=== PATIENT | female | born 1950 | race Caucasian/White ===

== ENCOUNTER 2016-11-08 09:00 | Day surgery (SDC) | payer OTHER ==
[2016-11-08] VITALS (9 sets, daily range): BP systolic 110–142; BP diastolic 68–72; PULSE 48–75; RESP 16; TEMP 97.6–98.1; O2SAT 95–98
[~2016-11-08] VITALS: Ht 165.1 cm; Wt 67.5 kg
[~2016-11-08 09:00] MED LIST: ALPR-138 PO; LEVO125T48 PO; LORTA5 PO; METO50TA PO; OMEP20CA5 PO
[2016-11-08] MEDS ORDERED: IOHEXOL 350 MG/ML 100 ML BTL (for Cath Lab) OTHER ONE (09:01)
[2016-11-08] MEDS ORDERED: NS 1000P @30 MLS/HR (KVO) IV SCH (09:30)
[2016-11-08] MEDS ORDERED: METO25TA3 PO (09:53)
[2016-11-08] MEDS ORDERED: LORA-373 PO (09:53)
[2016-11-08] MEDS ORDERED: BUPR150CR PO (09:53)
[2016-11-08] MEDS ORDERED: VITA100018 PO (09:53)
[2016-11-08] MEDS ORDERED: FLUT1INH INH (09:53)
[2016-11-08] MEDS ORDERED: FISH100020 PO (09:53)
[2016-11-08] MEDS ORDERED: LEVO88TA2 PO (09:53)
[2016-11-08] MEDS ORDERED: MONT10TA4 PO (09:53)
[2016-11-08] MEDS ORDERED: ASPI81TA11 PO (09:53)
[2016-11-08 10:29] LABS: AUTOMATED NEUTROPHIL # 3.1 TH/MM3 (1.8-7.7); BASOPHIL % 0.7 % (0.0-2.0); EOSINOPHIL # 0.1 TH/MM3 (0-0.4); EOSINOPHIL % 1.3 % (0.0-4.0); HEMATOCRIT 42.9 % (35.0-46.0); HEMO FLAGS DIFF FINAL; LYMPHOCYTE # 1.9 TH/MM3 (1.0-4.8); MEAN CELL VOLUME 92.1 FL (80.0-100.0); MEAN CORPUSCULAR HEMOGLOBIN 31.2 PG (27.0-34.0); MEAN CORPUSCULAR HGB CONC 33.9 % (32.0-36.0); MONO % 7.8 % (0.0-8.0); NEUT % 56.2 % (16.0-70.0); PLATELET COUNT 219 TH/MM3 (150-450); RED BLOOD COUNT 4.66 MIL/MM3 (4.00-5.30); RED CELL DISTRIBUTION WIDTH 13.4 % (11.6-17.2); WHITE BLOOD COUNT 5.5 TH/MM3 (4.0-11.0)
[2016-11-08 10:35] LABS: APTT (PATIENT) 24.2 SEC (24.3-30.1); PROTHROMBIN TIME - PATIENT 10.7 SEC (9.8-11.6)
[2016-11-08 10:44] LABS: BICARBONATE 30.8 MEQ/L (21.0-32.0); POTASSIUM 3.8 MEQ/L (3.5-5.1)
[2016-11-08] MEDS ORDERED: DEXTROSE 50% IN WATER 50 ML SYRINGE ONE (12:39)
[2016-11-08] MEDS ORDERED: NITROGLYCERIN INJ 5 ML ONE (12:39)
[2016-11-08] MEDS ORDERED: VERAPAMIL HCL 5 MG/2 ML VIAL ONE (12:40)
[2016-11-08] MEDS ORDERED: MIDAZOLAM HCL 2 MG/2 ML VIAL ONE (12:40)
[2016-11-08] MEDS ORDERED: HEPARIN SODIUM - IV 10,000 UNITS/10 ML VIAL ONE ×2 (12:40→14:26)
[2016-11-08] MEDS ORDERED: HEPARIN-NS/PF INJ 1,000 ML ONE ×2 (12:50→13:37)
--- NOTE | 2016-11-08 14:33 | EKG ---
Date Performed: 11/08/2016 Time Performed: 10:00:08 PTAGE: 65 years EKG: Sinus rhythm with frequent PVCs Abnormal ECG NO PREVIOUS TRACING DOCTOR: Maikel Duarte Interpretating Date/Time 11/08/2016 14:33:01
[2016-11-08] MEDS ORDERED: TICAGRELOR 90 MG TAB PO ONE (15:03)
[2016-11-08] MEDS ORDERED: ONDANSETRON HCL 4 MG/2 ML VIAL ONE (15:05)
--- NOTE | 2016-11-08 15:20 | CATHPROC ---
Supp[employer]id HIS Report Study Information Study Number Admission Scheduled Start Study Start [id number] Nov 08 2016 9:00AM 11/08/2016 Nov 08 2016 12:41PM Slemp Service Cardiac Catheterization Admit Source Facility Department Other [facility] - Relief Docking Master Physician and Clinical Staff Initial [place] Process Project Engineer Ailyn Dobbins BSRN Process Project Engineer Soham BRAVO, Robert Barcenas cathlab, cathlab Recorder Mitali Duran,RT(R) TECH2 Recorder Celso Bacon RCIS(BS) Scrub Jeniffer Ray,RT(R) Procedures Performed Procedure Location (Site) Vessel Name Coronary Angiograms LCA Left Coronary Coronary Angiograms RCA Right Coronary Drug Eluting Inflatio RCA Dist Right Coronary PTCA RCA Dist Right Coronary PTCA RCA Mid Right Coronary Wire insertion Radial (right) Radial Art. Equipment Time Pan Puller Description Size Mfg Part Number Used/Scraped WIRE, BALANCE MIDDLEWEIGHT [id number] 13:35 [employer] 190CM Used 190CM *[id number] TRANSDUCER, TRUWAVE [id number] 13:02 [employer] * Used W/STOCKCOCK *[id number] BALLOON, 2.25 X 10MM [id number] 14:41 [employer] 2.25 10MM Used FLEXTOME CUTTING *[id number] BALLOON, 2.25 X 15MM [id number] 13:57 [employer] 2.25 15MM Used FLEXTOME CUTTING *[id number] [id number] *[id number] *[id number] 13:02 [employer] PACK, CCL CUSTOM * Used *[id number] 13:02 [employer] SUPPORT, ARTERIAL ADULT 12539 *[id number] Used [id number] 13:59 [employer]TR[employer]IC BALLOON, 2.0 X 12MM EUPHORA 12MM Used *[id number] BALLOON, 2.25 X 15MM NC [id number] 14:03 [employer]TR[employer]IC 15MM Used EUPHORA *[id number] BALLOON, 2.5 X 15MM NC [id number] 14:12 [employer] 15MM Used EUPHORA *[id number] 13:05 [employer]IC JR 4.0 DXTERITY CATHETER FR 5 [id number] 14:17 [employer] STENT, 2.25 18MM ARIANE 2.25 18MM Used *[id number] 13:35 [employer] 30 TAQUERIA INDEFLATOR Used *[id number] BAND, RADIAL COMPRESSION TR [id number] 15:00 [employer] MEDICAL 24CM Used SHORT 24 *[id number] 13:02 [employer] WIRE, EXCHANGE 260CM 3MMJ 260CM Used *[id number] 13:02 NAMIC MANIFOLD, 4 PORT * Used *[id number] 13:02 [employer] OMNIPAQUE, 350 MG, 150ML 150ML [id number] Used [id number] 13:02 [facility] BLANKET,WARM AIR CCL * Used *[id number] 110-004 13:45 [employer] CATHETER, ELCA 0.9MM X-80 150CM Used *[id number] SHEATH, FR6 TRANSRADIAL [id number] 13:02 [employer] FR 6 Used SLENDER 10CM *[id number] Equipment Model, Serial, Lot Number and Expiration Data Description Model Number Serial Number Lot Number Expiration Date BALLOON, 2.25 X 10MM FLEXTOME [id number] 07-14-2018 CUTTING BALLOON, 2.25 X 15MM FLEXTOME [id number] 12-05-2018 CUTTING BALLOON, 2.25 X 15MM NC [id number] 01-24-2018 EUPHORA BALLOON, 2.5 X 15MM NC [id number] 04-26-2018 EUPHORA CATHETER, ELCA 0.9MM X-80 [id number] 09-14-2018 JR 4.0 DXTERITY CATHETER [id number] 08-09-2019 STENT, 2.25 18MM ARIANE [id number] 06-18-2018 History: Current Medications Medication Dosage/Unit Route Frequency Last Date/Time Taken Beta Pablo ASA History: Allergies Allergy Reaction pravastatin MUSCLE CRAMPING AND ITCH simvastatin MUSCLE CRAMPING AND ITCH amlodipine MUSCLE CRAMPING AND ITCH atorvastatin hives and itching gemfibrozil History: Risk Factors Hypertension Dyslipidemia Previous W[place] Yes Yes Yes Prior PCI Prior CABG Yes No Cerebrovascular Peripheral Artery Chronic Lung On Dialysis Diabetes Diabetes Therapy Disease Disease Disease No No No Yes Yes Diet History: Symptoms/Diagnosis Selection Items Chest pain History: CV Disease Selection Items Known CAD WV History: Stress Tests Stress or Imaging Studies Performed Yes Standard Exercise Stress Test No Stress Echo No Stress Test SPECT Stress Test SPECT Result Stress Test SPECT Ischemia Risk/Extent Yes Positive Low Stress Test CMR No Cardiac CTA Coronary Calcium Score No No History: Other Disease Selection Items CAD HTN History: Other Current Smoker Method Quit Packs a Day Years Used Pack Years No Cigarettes 30 Years Ago 3 10 30 Labs Hgb (g/dl) Hct (%) RBC (MIL/MM3) WBC (l/cumm) Platelets (thousands) 11.60-17.00 35.00-51.00 4.00-5.90 4.00-11.00 150.00-450.00 14.5 42.9 4.6 5.5 219 Glucose (mg/dl) BUN (mg/dl) Creatinine (mg/dl) BUN:Creatinine (1:x) 74.00-106.00 7.00-18.00 0.50-1.30 10.00-20.00 95 20 0.9 22.2 Na (meq/l) K (meq/l) Cl (meq/l) CO2 (mmol/L) Ca (mg/dl) 136.00-145.00 3.50-5.10 98.00-107.00 21.00-32.00 8.50-10.10 140 3.8 104 30.8 9.3 PT (sec) PTT (sec) INR (PTT:PT) 9.80-11.60 24.30-30.10 0.90-1.10 10.7 24.2 1 CPK-MB (ng/ML) 0.50-3.60 Not Drawn Medication Medication Total Dose (Bolus/Oral) Medication Total Dosage/Unit 1% XYLOCAINE 20 mL BRILINTA 180 mg FENTANYL 25 mcg HEPARIN 8000 units NTG (IC) 200 mcg RADIAL COCKTAIL 10 mL (Bolus) VERSED 0.5 mg ZOFRAN 4 mg Medications (Bolus/Oral) Medication Time Given Dosage/Unit Administered By Reason Ntg 200mcg Verapamil 2.5mg Heparin RADIAL COCKTAIL 11/08/2016 12:59:46 PM 5 mL (Bolus) cathlab, cathlab 2500U 5 mL (Bolus) RADIAL COCKTAIL given in lab by cathlab cathlab via Radial. Using D5W. Reason: Ntg 200m cg Verapamil 2.5mg Heparin 2500U. VERSED 11/08/2016 1:08:22 PM 0.5 mg Ailyn Dobbins 0.5 mg VERSED given in lab by Ailyn Dobbins BSRN in Left Antecubital via Peripheral IV. FENTANYL 11/08/2016 1:09:59 PM 25 mcg Ailyn Dobbins 25 mcg FENTANYL given in lab by Ailyn Dobbins BSRLissette in Left Antecubital via Peripheral IV. 1% XYLOCAINE 11/08/2016 1:17:02 PM 20 mL [place] Solorzano 20 mL 1% XYLOCAINE given in lab by [place] Sol[place]ano in Right Radial via Subcutaneous. Ntg 200mcg Verapamil 2.5mg Heparin RADIAL COCKTAIL 11/08/2016 1:18:36 PM 5 mL (Bolus) [place] 2000U 5 mL (Bolus) RADIAL COCKTAIL given in lab by [place] Sol[place]ano via Radial. Using [Solution Name]. [place] son: Ntg 200mcg Verapamil 2.5mg Heparin 2700U. HEPARIN 11/08/2016 1:35:43 PM 5000 units Robert Rousseau RN 5000 units HEPARIN given in lab by Robert Rousseau RN in Left Antecubital via Peripheral IV. Ordered by [place] Sol[place]ano. HEPARIN 11/08/2016 1:54:02 PM 1000 units Robert Rousseau RN 1000 units HEPARIN given in lab by Robert Rousseau RN in Left Antecubital via Peripheral IV. Ordered by [place] Sol[place]. HEPARIN 11/08/2016 2:15:17 PM 1000 units Robert Rousseau RN 1000 units HEPARIN given in lab by Robert Rousseau RN in Left Antecubital via Peripheral IV. Ordered by [place]. HEPARIN 11/08/2016 2:27:44 PM 1000 units Robert Rousseau RN 1000 units HEPARIN given in lab by Robert Rousseau RN in Left Antecubital via Peripheral IV. Ordered by [place]. NTG (IC) 11/08/2016 2:33:01 PM 100 mcg Jeniffer Ray 100 mcg NTG (IC) given in lab by Jeniffer Ray, RT(R) via Intra-coronary. Ordered by [place] . NTG (IC) 11/08/2016 2:54:43 PM 100 mcg Jeniffer Ray 100 mcg NTG (IC) given in lab by Jeniffer Ray, RT(R) via Intra-coronary. Ordered by [place] . BRILINTA 11/08/2016 3:05:02 PM 180 mg Robert Rousseau RN 180 mg BRILINTA given in lab by Robert Rousseau RN via Oral. Ordered by [place]. ZOFRAN 11/08/2016 3:06:28 PM 4 mg Robert Rousseau RN 4 mg ZOFRAN given in lab by Robert Rousseau RN in Left Antecubital via Central IV. Ordered by [place] Sol[place]ano. Medication (Drip) Medication Time Given Dosage/Unit Concentration/Unit Diluent (ml) Solution IV Solutions 11/08/2016 12:46:01 PM 0 mL (IV) 500 NaCl .9 IV Solutions given pre op by cathlabfarhadlab in Left Antecubital via Peripheral IV. Pump/Drip Flow = 20 ml/hr using NaCl .9. Initial Case Assessment Cardiovascular HR Rhythm NIBP Chest Pain 55 sr w/ pvc 142/73 0 Edema Present Skin color Skin None Normal Warm Dry Circulatory - Right Pulses Dorsalis Pedis Femoral Radial 2 2 2 Scale (0,1,2,3,4,d) Scale (0,1,2,3,4,d) Neurological State Oriented to time-place- Alert Moves all extremities person Respiration - General Respiration Rate SpO2 (%) (B/min) 18 98 Final Case Assessment Cardiovascular HR Rhythm NIBP Chest Pain 61 sr w/ pvc 100/60 0 Edema Present Skin color Skin None Normal Warm Dry Circulatory - Right Pulses Dorsalis Pedis Femoral Radial 2 2 2 Scale (0,1,2,3,4,d) Scale (0,1,2,3,4,d) Neurological State Oriented to time-place- Alert Moves all extremities person Respiration - General Respiration Rate SpO2 (%) (B/min) 18 98 Chronological Log Time Study Chronological Log 12:36:00 Patient arrived via Bed. 12:45:47 Patient Name, D.O.B, / Armband Verified By R.N. 12:45:49 Consent signed by the physician and the patient and verified by the Relief Docking Master staff. 12:45:49 Pre-op and post- op instructions given; patient acknowledges understanding of instructions. 12:45:51 Presedation assessment performed by Relief Docking Master RN. 12:45:52 Patient has been NPO for More than 6Hrs. 12:45:53 0.5 amp given of Dextrose 50 12:45:53 Skin Breakdown-scab on left knee 12:45:54 Patient Warmer Placed on the Table. 12:45:55 Clif Prominences Protected 12:45:58 A # 20 IV was noted in the Antecubital (left). Grade = 0 IV Solutions given pre op by cathlab, cathlab in Left Antecubital via Peripheral IV. Pump/Drip Flow = 20 ml/hr using 12:46:01 NaCl .9. 12:46:02 History and physical on the chart or being dictated. 12:46:34 Allens test performed on the right radial and ulnar artery. test-positive Vitals capture started with the following parameters, Patient=Adult, Interval=5 min, Initial Pr kruhur=880 mmHg, 12:47:42 Deflation Rate=5 mmHg, Cuff placed on Right Arm 12:53:15 HR=54 bpm, NYJS=516/73 mmhg, SpO2=97.0 %, Resp=15 B/min, Pain=0, Mayuri=10, Higuera=2 12:53:47 Reference ECG taken Assessment: Initial Case, HR=55 BPM, Rhythm=sr w/ pvc, BISN=221/73 mmhg, Chest Pain=0, Edema=No ne, Color=Normal, Skin = Warm, Dry 12:54:38 Right Pulses: Ernie Ped=2, Femoral=2, Radial=2 Neurological: State=Alert, Ox3, HESS Respiration: Resp=18 B/min, SpO2=98 % 12:58:16 HR=64 bpm, JIOJ=647/75 mmhg, ZmM0=770.0 %, Resp=15 B/min, Pain=0, Mayuri=10, Higuera=2 5 mL (Bolus) RADIAL COCKTAIL given in lab by cathlab, cathlab via Radial. Using D5W. Reason: Nt g 200mcg Verapamil 12:59:46 2.5mg Heparin 2500U. 13:02:35 Pressure channel 1 zeroed. 13:03:13 HR=77 bpm, PGIB=591/59 mmhg, SpO2=99.0 %, Resp=19 B/min, Pain=0, Mayuri=10, Higuera=2 13:07:27 MD arrived. 13:07:29 paged 13:08:22 0.5 mg VERSED given in lab by Ailyn Dobbins BSRN in Left Antecubital via Peripheral IV. 13:08:47 HR=72 bpm, SSFX=236/79 mmhg, SpO2=96.0 %, Resp=13 B/min, Pain=0, Mayuri=10, Higuera=2 13:09:59 25 mcg FENTANYL given in lab by Ailyn Dobbins BSRN in Left Antecubital via Peripheral I V. 13:13:18 HR=63 bpm, IKVC=322/68 mmhg, SpO2=95 %, Resp=19 B/min Time Out. Correct patient, correct procedure,correct physician, ,power injector not loaded with contrast with surgical 13:15:10 team present. Time Out Concurred by MD, individual staff and DENTAL LABORATORY WORKER in procedure 13:16:58 Case Start 13:17:02 20 mL 1% XYLOCAINE given in lab by Los Solorzano in Right Radial via Subcutaneous. 13:17:38 Access site was Right Radial Artery. A SHEATH, FR6 TRANSRADIAL SLENDER 10CM FR 6 was advanced into the Radial (right) using the Perc utaneous 13:17:49 technique. 13:18:13 HR=73 bpm, ATTX=497/89 mmhg, SpO2=95 %, Resp=16 B/min, Pain=0, Mayuri=10, Higuera=2 5 mL (Bolus) RADIAL COCKTAIL given in lab by [place] Solorzano via Radial. Using [Solution Name ]. Reason: Ntg 13:18:36 200mcg Verapamil 2.5mg Heparin 2700U. A JR 4.0 DXTERITY CATHETER FR 5 was advanced over a wire. OMNIPAQUE, 350 MG, 150ML 150ML was us ed for 13:19:09 injections. Recorded Pressure: LV, HR=85, Condition=Condition 1 13:21:50 (Left Ventricle) LV 108/16/3 Recorded Pressure: LV, HR=85, Condition=Condition 1 13:22:00 (Left Ventricle) LV 104/41/4 Recorded Pressure: LV, Ao, HR=71, Condition=Condition 1 13:22:11 (Left Ventricle) LV 97/1/3, (Aorta) Ao 95/60/77 Recorded Pressure: Ao, HR=65, Condition=Condition 1 13:22:29 (Aorta) Ao 105/52/78 13:22:45 The RCA was injected and visualized at various angles. OMNIPAQUE, 350 MG, 150ML 150ML used . 13:23:20 HR=64 bpm, YEMW=387/62 mmhg, SpO2=90.0 %, Resp=15 B/min, Pain=0, Mayuri=10, Higuera=2 After removing the current catheter a JL 3.5 INFINITI CATHETER FR 5 was advanced over a WIRE, E XCHANGE 260CM 13:24:16 3MMJ 260CM. 13:27:45 The LCA was injected and visualized at various angles. OMNIPAQUE, 350 MG, 150ML 150ML used . 13:28:17 HR=69 bpm, CAZN=504/65 mmhg, SpO2=91.0 %, Resp=17 B/min, Pain=0, Mayuri=10, Higuera=2 13:33:51 HR=55 bpm, VXGD=169/72 mmhg, SpO2=93.0 %, Resp=14 B/min, Pain=0, Mayuri=10, Higuera=2 After removing the current catheter a AL .75 GUIDE CATHETER FR 6 was advanced over a WIRE, EXCH RACHEL 260CM 13:34:57 3MMJ 260CM. 13:35:43 5000 units HEPARIN given in lab by Robert Ruosseau RN in Left Antecubital via Peripheral IV. O rdered by [place] Solorzano. 13:38:21 HR=65 bpm, XPBI=974/67 mmhg, SpO2=93.0 %, Resp=16 B/min, Pain=0, Mayuri=10, Higuera=2 13:40:20 A WIRE, BALANCE MIDDLEWEIGHT 190CM 190CM was inserted via Radial (right). 13:43:18 HR=60 bpm, URJB=058/70 mmhg, SpO2=90.0 %, Resp=16 B/min, Pain=0, Mayuri=10, Higuera=2 13:44:04 Interventional wire has crossed the lesion 13:48:17 HR=58 bpm, IBYF=434/68 mmhg, SpO2=94.0 %, Resp=19 B/min, Pain=0, Mayuri=10, Higuera=2 13:49:36 A CATHETER, ELCA 0.9MM X-80 150CM was advanced over a wire. contrast was used for injection s. 13:51:15 laser atherectomy in progress. 13:53:18 HR=59 bpm, WJFP=900/74 mmhg, SpO2=93.0 %, Resp=18 B/min, Pain=0, Mayuri=10, Higuera=2 13:54:02 1000 units HEPARIN given in lab by Robert Rousseau RN in Left Antecubital via Peripheral IV. O rdered by [place] Solor[place]ano. 13:55:51 Catheter was removed A BALLOON, 2.25 X 15MM FLEXTOME CUTTING 2.25 15MM was inserted over WIRE, BALANCE MIDDLEWEIGHT 190CM 13:57:17 190CM via the RCA Mid. 13:58:23 HR=61 bpm, DTCT=237/64 mmhg, SpO2=95 %, Resp=16 B/min 13:59:13 Balloon Removed. A BALLOON, 2.0 X 12MM EUPHORA 12MM was inserted over WIRE, BALANCE MIDDLEWEIGHT 190CM 190CM via the 13:59:18 RCA Dist. A BALLOON, 2.0 X 12MM EUPHORA 12MM over a WIRE, BALANCE MIDDLEWEIGHT 190CM 190CM in the RCA Mid was 14:00:35 inflated using a 30 TAQUERIA INDEFLATOR at 8 taqueria for 12 sec. 14:01:25 Balloon Removed. A BALLOON, 2.25 X 15MM NC EUPHORA 15MM was inserted over WIRE, BALANCE MIDDLEWEIGHT 190CM 190CM via 14:02:12 the RCA Mid. 14:03:18 HR=67 bpm, EXXS=267/66 mmhg, SpO2=95 %, Resp=15 B/min, Pain=0, Mayuri=10, Higuera=2 A BALLOON, 2.25 X 15MM NC EUPHORA 15MM over a WIRE, BALANCE MIDDLEWEIGHT 190CM 190CM in the RCA Dist 14:03:50 was inflated using a 30 TAQUERIA INDEFLATOR at 12 taqueria for 10 sec. A BALLOON, 2.25 X 15MM NC EUPHORA 15MM over a WIRE, BALANCE MIDDLEWEIGHT 190CM 190CM in the RCA Mid 14:04:10 was inflated using a 30 TAQUERIA INDEFLATOR at 12 taqueria for 10 sec. A BALLOON, 2.25 X 15MM NC EUPHORA 15MM over a WIRE, BALANCE MIDDLEWEIGHT 190CM 190CM in the RCA Mid 14:04:38 was inflated using a 30 TAQUERIA INDEFLATOR at 16 taqueria for 10 sec. A BALLOON, 2.25 X 15MM NC EUPHORA 15MM over a WIRE, BALANCE MIDDLEWEIGHT 190CM 190CM in the RCA Mid 14:05:18 was inflated using a 30 TAQUERIA INDEFLATOR at 16 taqueria for 10 sec. 14:05:30 Balloon Removed. A BALLOON, 2.25 X 15MM FLEXTOME CUTTING 2.25 15MM was inserted over WIRE, BALANCE MIDDLEWEIGHT 190CM 14:06:30 190CM via the RCA Mid. A BALLOON, 2.25 X 15MM FLEXTOME CUTTING 2.25 15MM over a WIRE, BALANCE MIDDLEWEIGHT 190CM 190CM in 14:07:19 the RCA Dist was inflated using a 30 TAQUERIA INDEFLATOR at 8 taqueria for 15 sec. 14:08:19 HR=74 bpm, TTFL=921/59 mmhg, SpO2=90 %, Resp=18 B/min, Pain=0, Mayuri=10, Higuera=2 A BALLOON, 2.25 X 15MM FLEXTOME CUTTING 2.25 15MM over a WIRE, BALANCE MIDDLEWEIGHT 190CM 190CM in 14::53 the RCA Mid was inflated using a 30 TAQUERIA INDEFLATOR at 8 taqueria for 15 sec. 14::53 Balloon Removed. 14:09:56 Activated Clotting Time Drawn A BALLOON, 2.5 X 15MM NC EUPHORA 15MM was inserted over WIRE, BALANCE MIDDLEWEIGHT 190CM 190CM via 14::58 the RCA Mid. 14:13:18 HR=87 bpm, LGQW=299/74 mmhg, SpO2=95 %, Resp=19 B/min, Pain=0, Mayuri=10, Higuera=2 A BALLOON, 2.5 X 15MM NC EUPHORA 15MM over a WIRE, BALANCE MIDDLEWEIGHT 190CM 190CM in the RCA Mid 14:13:35 was inflated using a 30 TAQUERIA INDEFLATOR at 2 taqueria for 20 sec. A BALLOON, 2.5 X 15MM NC EUPHORA 15MM over a WIRE, BALANCE MIDDLEWEIGHT 190CM 190CM in the RCA Mid 14:14:12 was inflated using a 30 TAQUERIA INDEFLATOR at 4 taqueria for 20 sec. A BALLOON, 2.5 X 15MM NC EUPHORA 15MM over a WIRE, BALANCE MIDDLEWEIGHT 190CM 190CM in the RCA Mid 14:14:41 was inflated using a 30 TAQUERIA INDEFLATOR at 3 taqueria for 20 sec. A BALLOON, 2.5 X 15MM NC EUPHORA 15MM over a WIRE, BALANCE MIDDLEWEIGHT 190CM 190CM in the RCA Mid 14:14:55 was inflated using a 30 TAQUERIA INDEFLATOR at 4 taqueria for 20 sec. 14:15:12 ACT (Normal Range 90-180) = 267 14:15:17 1000 units HEPARIN given in lab by Robert Rousseau RN in Left Antecubital via Peripheral IV. O rdered by [place] Solorzano. 14:16:09 Balloon Removed. A STENT, 2.25 18MM ARIANE 2.25 18MM was advanced through a AL .75 GUIDE CATHETER FR 6 over a WIRE , BALANCE 14:17:18 MIDDLEWEIGHT 190CM 190CM. 14:18:54 HR=58 bpm, ILHQ=568/60 mmhg, SpO2=91.0 %, Resp=16 B/min, Pain=0, Mayuri=10, Higuera=2 A STENT, 2.25 18MM ARIANE 2.25 18MM was deployed using a 30 TAQUERIA INDEFLATOR at 12 atmospheres for 18 seconds 14:19:18 in the RCA Dist. 14:19:50 Re-inflated the stent balloon in the RCA Dist to 12 TAQUERIA for 10 seconds. 14:20:14 Re-inflated the stent balloon in the RCA Dist to 18 TAQUERIA for 18 seconds. 14:21:00 Delivery device removed A BALLOON, 2.25 X 15MM NC EUPHORA 15MM was inserted over WIRE, BALANCE MIDDLEWEIGHT 190CM 190CM via 14:23:07 the RCA Mid. 14:23:20 HR=55 bpm, ZBDU=742/62 mmhg, SpO2=95 %, Resp=18 B/min, Pain=0, Mayuri=10, Higuera=2 A BALLOON, 2.25 X 15MM NC EUPHORA 15MM over a WIRE, BALANCE MIDDLEWEIGHT 190CM 190CM in the RCA Dist 14:23:49 was inflated using a 30 TAQUERIA INDEFLATOR at 12 taqueria for 10 sec. A BALLOON, 2.25 X 15MM NC EUPHORA 15MM over a WIRE, BALANCE MIDDLEWEIGHT 190CM 190CM in the RCA Dist 14:24:55 was inflated using a 30 TAQUERIA INDEFLATOR at 20 taqueria for 15 sec. A BALLOON, 2.25 X 15MM NC EUPHORA 15MM over a WIRE, BALANCE MIDDLEWEIGHT 190CM 190CM in the RCA Dist 14:25:28 was inflated using a 30 TAQUERIA INDEFLATOR at 20 taqueria for 10 sec. A BALLOON, 2.25 X 15MM NC EUPHORA 15MM over a WIRE, BALANCE MIDDLEWEIGHT 190CM 190CM in the RCA Dist 14:25:58 was inflated using a 30 TAQUERIA INDEFLATOR at 20 taqueria for 10 sec. A BALLOON, 2.25 X 15MM NC EUPHORA 15MM over a WIRE, BALANCE MIDDLEWEIGHT 190CM 190CM in the RCA Mid 14:26:39 was inflated using a 30 TAQUERIA INDEFLATOR at 20 taqueria for 10 sec. A BALLOON, 2.25 X 15MM NC EUPHORA 15MM over a WIRE, BALANCE MIDDLEWEIGHT 190CM 190CM in the RCA Mid 14:27:22 was inflated using a 30 TAQUERIA INDEFLATOR at 20 taqueria for 10 sec. A BALLOON, 2.25 X 15MM NC EUPHORA 15MM over a WIRE, BALANCE MIDDLEWEIGHT 190CM 190CM in the RCA Mid 14:27:40 was inflated using a 30 TAQUERIA INDEFLATOR at 20 taqueria for 10 sec. 14:27:44 1000 units HEPARIN given in lab by Robert Rousseau RN in Left Antecubital via Peripheral IV. O rdered by [place] Solorzano. 14:28:21 HR=53 bpm, AHUR=037/61 mmhg, SpO2=95 %, Resp=18 B/min, Pain=0, Mayuri=10, Higuera=2 14:29:05 Balloon Removed. A BALLOON, 2.5 X 15MM NC EUPHORA 15MM was inserted over WIRE, BALANCE MIDDLEWEIGHT 190CM 190CM via 14:29:05 the RCA Mid. A BALLOON, 2.5 X 15MM NC EUPHORA 15MM over a WIRE, BALANCE MIDDLEWEIGHT 190CM 190CM in the RCA Mid 14:29:20 was inflated using a 30 TAQUERIA INDEFLATOR at 12 taqueria for 10 sec. A BALLOON, 2.5 X 15MM NC EUPHORA 15MM over a WIRE, BALANCE MIDDLEWEIGHT 190CM 190CM in the RCA Mid 14:30:04 was inflated using a 30 TAQUERIA INDEFLATOR at 16 taqueria for 15 sec. A BALLOON, 2.5 X 15MM NC EUPHORA 15MM over a WIRE, BALANCE MIDDLEWEIGHT 190CM 190CM in the RCA Mid 14:30:42 was inflated using a 30 TAQUERIA INDEFLATOR at 18 taqueria for 10 sec. A BALLOON, 2.5 X 15MM NC EUPHORA 15MM over a WIRE, BALANCE MIDDLEWEIGHT 190CM 190CM in the RCA Mid 14:31:00 was inflated using a 30 TAQUERIA INDEFLATOR at 18 taqueria for 10 sec. 14:31:41 Balloon Removed. 14:33:01 100 mcg NTG (IC) given in lab by Jeniffer Ray RT(R) via Intra-coronary. Ordered by [place]. 14:33:22 HR=63 bpm, XGSY=670/71 mmhg, SpO2=91.0 %, Resp=17 B/min, Pain=0, Mayuri=10, Higuera=2 A BALLOON, 2.25 X 15MM FLEXTOME CUTTING 2.25 15MM was inserted over WIRE, BALANCE MIDDLEWEIGHT 190CM 14:35:23 190CM via the RCA Mid. A BALLOON, 2.25 X 15MM FLEXTOME CUTTING 2.25 15MM over a WIRE, BALANCE MIDDLEWEIGHT 190CM 190CM in 14:35:34 the RCA Mid was inflated using a 30 TAQUERIA INDEFLATOR at 6 taqueria for 15 sec. 14:38:19 HR=63 bpm, NIBP=98/66 mmhg, Resp=16 B/min, Pain=0, Mayuri=10, Higuera=2 14:38:42 Balloon Removed. 14:40:46 Wire removed 14:40:47 A WIRE, BALANCE MIDDLEWEIGHT 190CM 190CM was inserted via Radial (right). 14:41:14 Interventional wire has crossed the lesion A BALLOON, 2.25 X 10MM FLEXTOME CUTTING 2.25 10MM was inserted over WIRE, BALANCE MIDDLEWEIGHT 190CM 14:43:07 190CM via the RCA Mid. 14:43:51 HR=80 bpm, DETF=298/69 mmhg, SpO2=95 %, Resp=20 B/min, Pain=0, Mayuri=10, Higuera=2 A BALLOON, 2.25 X 10MM FLEXTOME CUTTING 2.25 10MM over a WIRE, BALANCE MIDDLEWEIGHT 190CM 190CM in 14:44:12 the RCA Mid was inflated using a 30 TAQUERIA INDEFLATOR at 8 taqueria for 10 sec. A BALLOON, 2.25 X 10MM FLEXTOME CUTTING 2.25 10MM over a WIRE, BALANCE MIDDLEWEIGHT 190CM 190CM in 14:44:47 the RCA Mid was inflated using a 30 TAQUERIA INDEFLATOR at 8 taqueria for 10 sec. A BALLOON, 2.25 X 10MM FLEXTOME CUTTING 2.25 10MM over a WIRE, BALANCE MIDDLEWEIGHT 190CM 190CM in 14:44:55 the RCA Mid was inflated using a 30 TAQUERIA INDEFLATOR at 12 taqueria for 10 sec. A BALLOON, 2.25 X 10MM FLEXTOME CUTTING 2.25 10MM over a WIRE, BALANCE MIDDLEWEIGHT 190CM 190CM in 14:45:19 the RCA Mid was inflated using a 30 TAQUERIA INDEFLATOR at 12 taqueria for 10 sec. A BALLOON, 2.25 X 10MM FLEXTOME CUTTING 2.25 10MM over a WIRE, BALANCE MIDDLEWEIGHT 190CM 190CM in 14:45:43 the RCA Mid was inflated using a 30 TAQUERIA INDEFLATOR at 12 taqueria for 8 sec. A BALLOON, 2.25 X 10MM FLEXTOME CUTTING 2.25 10MM over a WIRE, BALANCE MIDDLEWEIGHT 190CM 190CM in 14:46:04 the RCA Mid was inflated using a 30 TAQUERIA INDEFLATOR at 12 taqueria for 10 sec. A BALLOON, 2.25 X 10MM FLEXTOME CUTTING 2.25 10MM over a WIRE, BALANCE MIDDLEWEIGHT 190CM 190CM in 14:46:41 the RCA Mid was inflated using a 30 TAQUERIA INDEFLATOR at 12 taqueria for 8 sec. 14:47:26 Balloon Removed. 14:48:24 HR=59 bpm, SXOB=464/62 mmhg, SpO2=88.0 %, Resp=16 B/min, Pain=0, Mayuri=10, Higuera=2 A BALLOON, 2.5 X 15MM NC EUPHORA 15MM was inserted over WIRE, BALANCE MIDDLEWEIGHT 190CM 190CM via 14:48:34 the RCA Mid. A BALLOON, 2.5 X 15MM NC EUPHORA 15MM over a WIRE, BALANCE MIDDLEWEIGHT 190CM 190CM in the RCA Dist 14:50:09 was inflated using a 30 TAQUERIA INDEFLATOR at 14 taqueria for 15 sec. A BALLOON, 2.5 X 15MM NC EUPHORA 15MM over a WIRE, BALANCE MIDDLEWEIGHT 190CM 190CM in the RCA Mid 14:50:36 was inflated using a 30 TAQUERIA INDEFLATOR at 20 taqueria for 10 sec. A BALLOON, 2.5 X 15MM NC EUPHORA 15MM over a WIRE, BALANCE MIDDLEWEIGHT 190CM 190CM in the RCA Mid 14:51:05 was inflated using a 30 TAQUERIA INDEFLATOR at 20 taqueria for 10 sec. A BALLOON, 2.5 X 15MM NC EUPHORA 15MM over a WIRE, BALANCE MIDDLEWEIGHT 190CM 190CM in the RCA Mid 14:51:25 was inflated using a 30 TAQUERIA INDEFLATOR at 20 taqueria for 10 sec. A BALLOON, 2.5 X 15MM NC EUPHORA 15MM over a WIRE, BALANCE MIDDLEWEIGHT 190CM 190CM in the RCA Mid 14:51:45 was inflated using a 30 TAQUERIA INDEFLATOR at 20 taqueria for 10 sec. A BALLOON, 2.5 X 15MM NC EUPHORA 15MM over a WIRE, BALANCE MIDDLEWEIGHT 190CM 190CM in the RCA Mid 14:52:09 was inflated using a 30 TAQUERIA INDEFLATOR at 20 taqueria for 10 sec. A BALLOON, 2.5 X 15MM NC EUPHORA 15MM over a WIRE, BALANCE MIDDLEWEIGHT 190CM 190CM in the RCA Mid 14:52:27 was inflated using a 30 TAQUERIA INDEFLATOR at 20 taqueria for 10 sec. 14:53:03 ACT (Normal Range 90-180) = 276 14:53:21 HR=75 bpm, WTAS=976/80 mmhg, SpO2=94.0 %, Resp=19 B/min, Pain=0, Mayuri=10, Higuera=2 A BALLOON, 2.5 X 15MM NC EUPHORA 15MM over a WIRE, BALANCE MIDDLEWEIGHT 190CM 190CM in the RCA Mid 14:53:33 was inflated using a 30 TAQUERIA INDEFLATOR at 20 taqueria for 10 sec. 14:53:42 Balloon Removed. 14:54:43 100 mcg NTG (IC) given in lab by Jeniffer Ray RT(R) via Intra-coronary. Ordered by Los Dawkins. 14:58:24 HR=75 bpm, EZPQ=458/60 mmhg, SpO2=93.0 %, Resp=14 B/min, Pain=0, Mayuri=10, Higuera=2 14:59:26 Wire removed 14:59:58 Catheter was removed Radial Compression Device Used. 11 mLs of air placed in BAND, RADIAL COMPRESSION TR SHORT 24 2 4CM. Affected 15:00:24 hand 95 % O2 saturation. 15:01:10 Case End Assessment: Final Case, HR=61 BPM, Rhythm=sr w/ pvc, SBCI=209/60 mmhg, Chest Pain=0, Edema=Non e, Color=Normal, Skin = Warm, Dry 15:01:13 Right Pulses: Ernie Ped=2, Femoral=2, Radial=2 Neurological: State=Alert, Ox3, HESS Respiration: Resp=18 B/min, SpO2=98 % 15:03:58 HR=64 bpm, THRY=030/64 mmhg, SpO2=96.0 %, Resp=17 B/min, Pain=0, Mayuri=10, Higuera=2 15:05:02 180 mg BRILINTA given in lab by Robert Rousseau RN via Oral. Ordered by Los Solorzano. 15:06:28 4 mg ZOFRAN given in lab by Robert Rousseau RN in Left Antecubital via Central IV. Ordered by Los Solorzano. 15:08:24 HR=55 bpm, FQXK=009/70 mmhg, SpO2=95 %, Resp=17 B/min, Pain=0, Mayuri=10, Higuera=2 15:14:21 Vitals capture stopped. 15:17:09 Patient moved to [facility] End Study - Contrast Media Used In Study Contrast Total Opened (mL) Total Used (mL) Total Wasted (mL) Omnipaque 180 180 0 End Study - Maximum Contrast Load Max Contrast Load (mL) 375.0 End Study - Radiation Exposure Fluoro Time (minutes) 29.4 End Study - Patient Disposition Complications Transferred To Interventional Outcome No Telemetry Bed successful
[2016-11-08] MEDS ORDERED: SODIUM CHLOR 0.9% 1000 ML INJ 1,000 ML IV SCH (15:24)
[2016-11-08] MEDS ORDERED: ACETAMINOPHEN 325 MG TAB PO PRN (15:30)
[2016-11-08] MEDS ORDERED: MORPHINE SULFATE 4 MG/ML INJ IV PUSH PRN (15:30)
[2016-11-08] MEDS ORDERED: oxyCODONE/ACETAMINOPHEN 10 MG/325 MG TAB PO PRN (15:30)
[2016-11-08] MEDS ORDERED: LORazepam 0.5 MG TAB PO PRN (15:30)
[2016-11-08] MEDS ORDERED: oxyCODONE/ACETAMINOPHEN 5 MG/325 MG TAB PO PRN (15:30)
[2016-11-08] MEDS ORDERED: ONDANSETRON HCL 4 MG/2 ML VIAL IVP PRN (15:30)
[2016-11-08] MEDS ORDERED: MISC INFORMATION XX ONE (15:30)
[2016-11-08] MEDS ORDERED: NITROGLYCERIN 0.4 MG SL 25 TABS/BTL SL ONE ×2 (15:39→17:11)
[2016-11-08] MEDS ORDERED: PILL SPLITTER OTHER PRN (15:45)
[2016-11-08] MEDS ORDERED: PANTOPRAZOLE SOD 40 MG DELAYED RELEASE TAB PO ONE (19:00)
[2016-11-08] MEDS: buPROPion HCL 150 MG SUSTAINED RELEASE TAB PO SCH (20:52)
[2016-11-08] MEDS: METOPROLOL TARTRATE 25 MG TAB PO SCH (20:52)
[2016-11-08] MEDS: TICAGRELOR 90 MG TAB PO SCH (20:53)
[2016-11-08] MEDS ORDERED: MONTELUKAST SODIUM 10 MG TAB PO SCH (21:00)
--- NOTE | 2016-11-08 23:36 | MA ---
cc: NAVDEEP BARRIGA DO DATE: November 08, 2016 PROCEDURE Left heart catheterization, coronary angiogram, laser atherectomy / cutting balloon angioplasty / angioplasty mid RCA, drug-eluting stent distal RCA, complex case, moderate sedation 105 minutes. PREPROCEDURE DIAGNOSIS Unstable angina, abnormal stress test. POSTPROCEDURE DIAGNOSIS Coronary artery disease status post laser atherectomy / cutting balloon angioplasty / angioplasty mid RCA, [place] drug-eluting stent (2.25 x 18) to the distal RCA. MEDICATIONS 1. Verapamil 2.5 mg. 2. Nitro 200 mcg 3. Versed 1/2 mg. 4. Fentanyl 25 mcg. 5. Heparin 10,700 units. 6. Brilinta 180 mg. 7. Zofran 4 mg. Moderate sedation: 105 minutes. ESTIMATED BLOOD LOSS 20 cc PROCEDURAL SUMMARY Hilda Morales is a pleasant 65-year-old female who I see in the office and had an abnormal stress test. Of note, she was having what appeared to be frequent PVCs, bigeminy and trigeminy on all of her EKGs which may signify prominent ischemia. Because of her symptoms, ectopy, an abnormal stress test, she was recommended cardiac catheterization. The risks, benefits and alternatives were explained to her and she consented as such. She was brought to the lab and prepped in the usual sterile fashion. The right radial artery was accessed using modified Seldinger technique and placement of a 5/6 Mongolian slender sheath. This was easily aspirated and flushed. A JR-4 was advanced over a J-wire to the ascending aorta, size 3 ascending aorta, and across the aortic valve for measurement of left ventricular pressure. This was pulled back across the aortic valve showing no significant gradient of aortic stenosis. JR-4 was used for selective angiography of the left coronary artery. This was exchanged out for a JL-3.5 which was used for selective angiography of the left coronary artery. Please see below for interventional notes. Postprocedure radial band was placed over the arteriotomy site for hemostasis. 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 FINDINGS Left main: Normal size vessel with adequate reflux. No significant disease. It bifurcates into an LAD and circumflex. LAD: Normal-size vessel with mild luminal irregularities throughout the proximal portion. 20% disease in the midportion of the LAD with a 40% lesion in the distal portion. It gives off one major diagonal with no significant disease. Left circumflex: Three major obtuse marginals. The first obtuse marginal has an 80 to 90% stenosis in the proximal portion with another 80% stenosis in the midportion. The second obtuse marginal has a stent which is patent and no significant disease. The obtuse marginal is distal, relatively small with no significant disease. RCA: Normal-size vessel of the proximal portion. Extensive amount of stenting throughout the midportion from essentially the proximal to distal portion. There was a small area in the distal portion, unstented, and then a stent in the distal portion. The stents in the proximal to midportion of In-stent restenosis throughout most of it of up to 80%. The portion of the RCA that is unstented in the distal portion has a 90% lesion. LVEDP: 3. PROCEDURE INTERVENTION Because of the significant stenosis in the RCA, and the obtuse marginal, I felt at this time was prudent especially with her ectopy, unstable angina, that this be intervened on. The patient was given heparin as an additional anticoagulant. An AL 0.75 guide was engaged in the RCA. A BMW wire was advanced into the distal RCA. A laser atherectomy catheter was then used throughout the In-stent restenosis portion in the mid to distal RCA at 60/60 and then 80/80. A compliant balloon (2 x 12) was then used on the distal unstented portion of the RCA. A noncompliant balloon (2.25 x 15) was then used throughout the stented portion of the RCA with In-stent restenosis and a Flextone cutting balloon, (2.25 x 15) was then used throughout the In-stent restenosis of the RCA. This was exchanged for a noncompliant balloon (2.5 x 15) which was used across the In-stent restenosis of the mid RCA. An [place] drug-eluting stent was then placed in the unstented portion of the RCA to cover from the mid RCA stents to the distal RCA stent. A noncompliant balloon (2.25 x 15) was then used to post dilate the stent as well as the overlap with the proximal and distal stents. This was exchanged for a noncompliant balloon (2.5 x 14) which was used on the mid portion of the stent with In-stent restenosis at higher pressures. This was exchanged out for a Flextone cutting balloon (2.25 x 10) which was used over the In-stent restenosis of the mid RCA. This was lastly exchanged for a noncompliant balloon, (2.5 x 15) which was used on the newly placed stent as well as the In-stent restenosis of the stents in the mid portion of the RCA. Wire was pulled back and final angiogram shows increased flow through the mid portion of the RCA, a well opposed stent in the distal portion of the RCA with no perforations or dissections. The wire was removed. Guide catheter was removed over a J-wire. The patient was given 180 mg of Brilinta. IMPRESSION 1. Unstable angina. 2. Significant ectopy with frequent episodes of PVCs, bigeminy and trigeminy 3. Abnormal stress test. 4. Coronary artery disease status post laser atherectomy / cutting balloon angioplasty / angioplasty of the mid RCA, In-stent restenosis, [place] drug-eluting stent (2.25 x 18) to the distal RCA with residual lesions in the first obtuse marginal. RECOMMENDATIONS 1. Ms. Morales underwent stenting of her RCA with a drug-eluting stent. She will be placed on aspirin and Brilinta therapy. 2. She will receive 30 days free of Brilinta and she will check with her pharmacy on the [place] of refills. If it is too expensive she will be switched over to Plavix therapy. 3. As far as her lesions in the obtuse marginal, this will further be discussed with her from a symptom standpoint and to see if she further has ectopy. 4. Postprocedure she did have some mild chest pain which was relieved with nitroglycerin and some burning in the epigastric area which she related to her reflux. 5. She will be watched overnight and if stable discharged in the morning for followup with myself for consideration of intervention on her obtuse marginal. Thank you for allowing me to see Hilda Morales. If there are any questions, please do not hesitate to call. Navdeep Barriga DO VGP/MECHELLE /9:50 PM /11:09 PM
[2016-11-09] VITALS (13 sets, daily range): BP systolic 99–108; BP diastolic 59–67; PULSE 40–74; RESP 18; TEMP 97.7–97.9; O2SAT 97
[2016-11-09 06:55] LABS: AUTOMATED NEUTROPHIL # 5.5 TH/MM3 (1.8-7.7); BASOPHIL % 0.1 % (0.0-2.0); EOSINOPHIL # 0.1 TH/MM3 (0-0.4); EOSINOPHIL % 2.1 % (0.0-4.0); HEMATOCRIT 37.4 % (35.0-46.0); HEMO FLAGS DIFF FINAL; LYMPH % 8.7 % (9.0-44.0); LYMPHOCYTE # 0.6 TH/MM3 (1.0-4.8); MEAN CELL VOLUME 91.3 FL (80.0-100.0); MEAN CORPUSCULAR HEMOGLOBIN 31.4 PG (27.0-34.0); MEAN CORPUSCULAR HGB CONC 34.3 % (32.0-36.0); MONO % 5.7 % (0.0-8.0); NEUT % 83.4 % (16.0-70.0); PLATELET COUNT 157 TH/MM3 (150-450); WHITE BLOOD COUNT 6.5 TH/MM3 (4.0-11.0)
[2016-11-09 07:07] LABS: BICARBONATE 28.3 MEQ/L (21.0-32.0); POTASSIUM 3.7 MEQ/L (3.5-5.1)
--- NOTE | 2016-11-09 07:53 | EKG ---
Date Performed: 11/08/2016 Time Performed: 16:52:02 PTAGE: 65 years EKG: Sinus bradycardia Lateral T wave changes are nonspecific Borderline ECG Since PREVIOUS TRACING , no significant change noted PREVIOUS TRACIN11/08/2016 10.00 DOCTOR: Bia Marie Interpretating Date/Time 11/09/2016 07:51:43
[2016-11-09] MEDS: buPROPion HCL 150 MG SUSTAINED RELEASE TAB PO SCH (08:51)
[2016-11-09] MEDS: TICAGRELOR 90 MG TAB PO SCH (08:51)
[2016-11-09] MEDS: METOPROLOL TARTRATE 25 MG TAB PO SCH (08:52)
[2016-11-09] MEDS ORDERED: FLUTICASONE 100 MCG/VILANTEROL 25 MCG INHALER INH SCH (09:00)
[2016-11-09] MEDS ORDERED: CHOLECALCIFEROL (VIT D3) 1000 UNIT TAB PO SCH (09:00)
[2016-11-09] MEDS ORDERED: LISINOPRIL 5 MG TAB PO SCH (09:00)
[2016-11-09] MEDS ORDERED: LEVOTHYROXINE SODIUM 88 MCG TAB PO SCH (09:00)
[2016-11-09] MEDS ORDERED: ASPIRIN EC 81 MG TABEC PO SCH (09:00)
[2016-11-09] MEDS ORDERED: BRIL90TA PO (12:17)
--- NOTE | 2016-11-09 12:20 | PD.CARD.PN ---
Subjective Subjective Remarks No events overnight No chest pain Up and ambulating Heart rates in the 40s overnight Objective Medications Current Medications Medications (Trade) Dose Ordered Sig/Liza Route Start Time Stop Time Status Last Admin Sodium Chloride 1,000 ml @ 30 mls/hr Q24H IV 11/08/16 09:30 (Ecotrin Ec) 81 mg DAILY PO 11/09/16 09:00 11/09/16 08:51 (Wellbutrin Sr) 150 mg Q12HR PO 11/08/16 21:00 11/09/16 08:51 (Vitamin D3) 1,000 units DAILY PO 11/09/16 09:00 11/09/16 08:51 (Breo Ellipta 100-25 Inh) 1 puff DAILY INH 11/09/16 09:00 (Synthroid) 88 mcg DAILY PO 11/09/16 09:00 11/09/16 08:51 (Ativan) 0.25 mg HS PRN PO 11/08/16 15:30 11/08/16 21:54 (Lopressor) 25 mg BID PO 11/08/16 21:00 11/08/16 20:52 (Singulair) 10 mg HS PO 11/08/16 21:00 11/08/16 20:52 (Tylenol) 325 mg Q4H PRN PO 11/08/16 15:30 (Percocet 5-325 Mg) 1 tab Q4H PRN PO 11/08/16 15:30 (Percocet 10-325 Mg) 1 tab Q4H PRN PO 11/08/16 15:30 (Morphine Inj) 2 mg Q30M PRN IV PUSH 11/08/16 15:30 11/08/16 16:28 (Zofran Inj) 4 mg Q6H PRN IVP 11/08/16 15:30 (Brilinta) 90 mg BID PO 11/08/16 21:00 11/09/16 08:51 (Prinivil) 2.5 mg DAILY PO 11/09/16 09:00 (Pill Splitter) 1 ea UNSCH PRN OTHER 11/08/16 15:45 Vital Signs / I&O Vital Signs Date Time Temp Pulse Resp B/P (MAP) Pulse Ox O2 Delivery O2 Flow Rate FiO2 11/09/16 11:00 74 11/09/16 10:00 60 11/09/16 09:00 53 11/09/16 08:00 53 11/09/16 07:33 97.9 40 18 108/67 (81) 97 11/09/16 07:00 40 11/09/16 06:12 53 11/09/16 05:00 51 11/09/16 04:00 52 11/09/16 03:00 60 11/09/16 03:00 97.7 63 99/59 (72) 97 11/09/16 02:00 58 11/09/16 01:00 58 11/09/16 00:00 62 11/08/16 23:00 98.1 59 110/68 (82) 96 11/08/16 23:00 53 11/08/16 22:00 56 11/08/16 21:00 64 11/08/16 20:00 62 11/08/16 19:00 56 11/08/16 19:00 97.6 57 142/72 (95) 98 11/08/16 18:00 48 11/08/16 17:00 50 11/08/16 15:40 62 I/O 11/08/16 11/08/16 11/08/16 11/09/16 11/09/16 11/09/16 07:00 15:00 23:00 07:00 15:00 23:00 Intake Total 1080 ml Output Total 3 ml Balance 1077 ml Intake Oral 480 ml IV Total 600 ml Output Urine Total 3 ml Physical Exam GENERAL: NAD, AAOx3 SKIN: Warm and dry. HEAD: Atraumatic. Normocephalic. EYES: Pupils equal and round. No scleral icterus. No injection or drainage. ENT: No nasal bleeding or discharge. Mucous membranes pink and moist. NECK: Trachea midline. No JVD. CARDIOVASCULAR: Regular rate and rhythm. RESPIRATORY: No accessory muscle use. Clear to auscultation. Breath sounds equal bilaterally. GASTROINTESTINAL: Abdomen soft, non-tender, nondistended. Hepatic and splenic margins not palpable. MUSCULOSKELETAL: Extremities without clubbing, cyanosis, or edema. No obvious deformities. Right radial no hematoma, neurovascularly intact NEUROLOGICAL: Awake and alert. No obvious cranial nerve deficits. Motor grossly within normal limits. Five out of 5 muscle strength in the arms and legs. Normal speech. PSYCHIATRIC: Appropriate mood and affect; insight and judgment normal. Laboratory Laboratory Tests Test 11/09/16 06:00 White Blood Count 6.5 TH/MM3 Red Blood Count 4.10 MIL/MM3 Hemoglobin 12.8 GM/DL Hematocrit 37.4 % Mean Corpuscular Volume 91.3 FL Mean Corpuscular Hemoglobin 31.4 PG Mean Corpuscular Hemoglobin Concent 34.3 % Red Cell Distribution Width 13.0 % Platelet Count 157 TH/MM3 Mean Platelet Volume 10.0 FL Neutrophils (%) (Auto) 83.4 % Lymphocytes (%) (Auto) 8.7 % Monocytes (%) (Auto) 5.7 % Eosinophils (%) (Auto) 2.1 % Basophils (%) (Auto) 0.1 % Neutrophils # (Auto) 5.5 TH/MM3 Lymphocytes # (Auto) 0.6 TH/MM3 Monocytes # (Auto) 0.4 TH/MM3 Eosinophils # (Auto) 0.1 TH/MM3 Basophils # (Auto) 0.0 TH/MM3 CBC Comment DIFF FINAL Differential Comment Blood Urea Nitrogen 13 MG/DL Creatinine 0.62 MG/DL Random Glucose 84 MG/DL Calcium Level 8.2 MG/DL Sodium Level 141 MEQ/L Potassium Level 3.7 MEQ/L Chloride Level 108 MEQ/L Carbon Dioxide Level 28.3 MEQ/L Anion Gap 5 MEQ/L Estimat Glomerular Filtration Rate 97 ML/MIN Assessment and Plan Problem List: (1) CAD (coronary artery disease) ICD Codes: I25.10 - Atherosclerotic heart disease of hoh coronary artery without angina pectoris (2) HTN (hypertension) ICD Codes: I10 - Essential (primary) hypertension (3) Diabetes ICD Codes: E11.9 - Type 2 diabetes mellitus without complications Assessment and Plan 1) CAD with multiple stents in the RCA s/p laser/cut of the mid RCA and DIPIKA (2.25x18) to distal RCA 2) Bradycardia overnight, will stop BB 3) Mild hypotension this morning, will hold [id number] 4) Statin allergy 5) Con't ASA/Brilinta 6) Will follow up with me in the next few weeks, will see how she is doing with the OM lesions Los Solorzano DO Nov 09, 2016 12:20
== END 2016-11-09 13:00 | disposition home or self-care (01) ==
LOC: HDIC 09:00 → HDOC 09:00 → HCIN 15:27 → HDOC 11-09 13:00
PROVIDERS: ATTEND Nuclear Medicine Nuclear Cardiology
DX: T82.855A Stenosis of coronary artery stent, initial encounter (principal); I25.110 Atherosclerotic heart disease of native coronary artery with unstable angina pectoris; Y83.8 Other surgical procedures as the cause of abnormal reaction of the patient, or of later complication, without mention of misadventure at the time of the procedure; I12.9 Hypertensive chronic kidney disease with stage 1 through stage 4 chronic kidney disease, or unspecified chronic kidney disease; N18.2 Chronic kidney disease, stage 2 (mild); E78.5 Hyperlipidemia, unspecified; E11.9 Type 2 diabetes mellitus without complications; Z87.891 Personal history of nicotine dependence; Z79.82 Long term (current) use of aspirin; Z79.899 Other long term (current) drug therapy
CPT/HCPCS: 80048; 85002; 85025; 85610; 85730; 92933; 93005; 93458; C1725; C1769; C1874; C1885; C1893; J1644; J2250; J2270; J2405; J3010; J7030; 93454; Q9967

== ENCOUNTER 2017-02-01 06:30 | Day surgery (SDC) | payer OTHER ==
[~2017-02-01] VITALS: Ht 162.6 cm; Wt 63.4 kg
[2017-02-01] VITALS (13 sets, daily range): BP systolic 139–151; BP diastolic 66–73; PULSE 63–91; RESP 17–18; TEMP 97.1–98.2; O2SAT 78–99
[~2017-02-01 06:30] MED LIST changes: -ALPR-138 PO; +ASPI81TA23 PO; +BRIL90TA PO; +BUPR150CR PO; +FISH100020 PO; +FLUT1INH INH; -LEVO125T48 PO; +LEVO88TA2 PO; +LORA0.5T PO; -LORTA5 PO; -METO50TA PO; +MONT10TA4 PO; -OMEP20CA5 PO; +VITA100018 PO
[2017-02-01] MEDS ORDERED: IOHEXOL 350 MG/ML 100 ML BTL (for Cath Lab) OTHER ONE ×2 (06:31)
[2017-02-01] MEDS ORDERED: NS 1000P @30 MLS/HR (KVO) IV SCH (07:00)
[2017-02-01 07:21] LABS: AUTOMATED NEUTROPHIL # 3.3 TH/MM3 (1.8-7.7); BASOPHIL % 0.6 % (0.0-2.0); EOSINOPHIL # 0.1 TH/MM3 (0-0.4); EOSINOPHIL % 1.2 % (0.0-4.0); HEMATOCRIT 41.1 % (35.0-46.0); HEMO FLAGS DIFF FINAL; LYMPH % 29.7 % (9.0-44.0); LYMPHOCYTE # 1.7 TH/MM3 (1.0-4.8); MEAN CELL VOLUME 90.1 FL (80.0-100.0); MEAN CORPUSCULAR HGB CONC 33.3 % (32.0-36.0); MONO % 10.1 % (0.0-8.0); NEUT % 58.4 % (16.0-70.0); PLATELET COUNT 209 TH/MM3 (150-450); RED BLOOD COUNT 4.56 MIL/MM3 (4.00-5.30); RED CELL DISTRIBUTION WIDTH 12.9 % (11.6-17.2); WHITE BLOOD COUNT 5.6 TH/MM3 (4.0-11.0)
[2017-02-01] MEDS ORDERED: ROSU20 PO (07:23)
[2017-02-01 07:25] LABS: APTT (PATIENT) 24.8 SEC (24.3-30.1); INTERNATIONAL NORMALIZED RATIO 1.1 RATIO; PROTHROMBIN TIME - PATIENT 10.7 SEC (9.8-11.6)
[2017-02-01 07:30] LABS: BICARBONATE 29.6 MEQ/L (21.0-32.0); POTASSIUM 3.4 MEQ/L (3.5-5.1)
[2017-02-01] MEDS ORDERED: POTASSIUM CHLORIDE 20 MEQ CONTROLLED RELEASE TAB PO ONE (08:30)
[2017-02-01] MEDS ORDERED: VERAPAMIL HCL 5 MG/2 ML VIAL ONE (08:36)
[2017-02-01] MEDS ORDERED: HEPARIN-NS/PF INJ 1,500 ML ONE (08:36)
[2017-02-01] MEDS ORDERED: MIDAZOLAM HCL 2 MG/2 ML VIAL ONE (08:36)
[2017-02-01] MEDS ORDERED: HEPARIN SODIUM - IV 10,000 UNITS/10 ML VIAL ONE (08:37)
[2017-02-01] MEDS ORDERED: NITROGLYCERIN INJ 5 ML ONE (08:37)
[2017-02-01] MEDS ORDERED: ASPIRIN 81 MG CHEW TAB ONE (10:08)
--- NOTE | 2017-02-01 10:30 | CATHPROC ---
[facility] HIS Report Study Information Study Number Admission Scheduled Start Study Start [id number] Feb 01 2017 6:30AM 02/01/2017 Feb 01 2017 8:31AM [place] Service Cardiac Catheterization Admit Source Facility Department Other [facility] - Certified Court/Medical Interpreter Physician and Clinical Staff Initial MD Solorzano, Los Business Development Coordinator Soham RN, Robert Recorder Felicita Chadwick,(R) (BS) Scrub Celso Bacon RCIS(BS) Procedures Performed Procedure Location (Site) Vessel Name Drug Eluting Inflatio OM1 Mid CIRC Drug Eluting Inflatio OM1 Prox CIRC L Heart Cath PTCA OM1 Prox CIRC Wire insertion Radial (right) Radial Art. Equipment Time Gauge Controller Description Size Mfg Part Number Used/Scraped WIRE, BALANCE MIDDLEWEIGHT [id number] 09:06 [employer] 190CM Used 190CM *[id number] TRANSDUCER, TRUWAVE [id number] 08:41 [employer] * Used W/STOCKCOCK *[id number] 08:41 [employer] PACK, CCL CUSTOM * Used *[id number] 08:41 [employer] SUPPORT, ARTERIAL ADULT 84576 *[id number] Used [id number] 09:08 [employer] BALLOON, 2.0 X 6MM EUPHORA 6MM Used *[id number] 09:42 [employer] BALLOON, 2.5 X 12MM EUPHORA 12MM Used *[id number] 09:36 [employer] STENT, 2.5 12MM ARIANE 2.5 12MM Used *[id number] 09:18 [employer] STENT, 2.5 8MM ARIANE 2.5 8MM Used *[id number] 08:53 [employer]/AVE EBU 3.5 Z2 GUIDE CATHETER FR 6 Used *[id number] 09:16 [employer] MEDICAL 30 TAQUERIA INDEFLATOR Used *[id number] BAND, RADIAL COMPRESSION TR [id number] 10:09 [employer] MEDICAL 24CM Used SHORT 24 *[id number] 08:41 [employer] MED[employer] WIRE, EXCHANGE 260CM 3MMJ 260CM Used *[id number] 08:41 NAMIC MANIFOLD, 4 PORT * Used *[id number] 08:41 [employer]ED OMNIPAQUE, 350 MG, 150ML 150ML [id number] Used [id number] 08:41 [employer] BLANKET,WARM AIR CCL * Used *[id number] SHEATH, FR6 TRANSRADIAL [id number] 08:41 [employer] FR 6 Used SLENDER 10CM *[id number] Equipment Model, Serial, Lot Number and Expiration Data Description Model Number Serial Number Lot Number Expiration Date STENT, 2.5 12MM ARIANE [id number] 10-12-2018 STENT, 2.5 8MM ARIANE [id number] 06-27-2018 History: Current Medications Medication Dosage/Unit Route Frequency Last Date/Time Taken ASA Statins (any) BRILINTA History: Allergies Allergy Reaction pravastatin MUSCLE CRAMPING AND ITCH simvastatin MUSCLE CRAMPING AND ITCH amlodipine MUSCLE CRAMPING AND ITCH atorvastatin hives and itching gemfibrozil History: Risk Factors Family History of Hypertension Dyslipidemia Previous NC Previous Heart Failure Premature CAD Yes Yes No Yes No Prior PCI Prior PCIDate Prior CABG Yes 11/08/2016 No Cerebrovascular Peripheral Artery Chronic Lung On Dialysis Diabetes Diabetes Therapy Disease Disease Disease No No No Yes Yes Diet History: Symptoms/Diagnosis Selection Items Chest pain History: CV Disease Selection Items Known CAD NC History: Stress Tests Stress or Imaging Studies Performed No History: Other Disease Selection Items CAD HTN History: Other Current Smoker Method Quit Packs a Day Years Used Pack Years No Cigarettes 30 Years Ago 3 10 30 Labs Hgb (g/dl) Hct (%) WBC (l/cumm) Platelets (thousands) 11.60-17.00 35.00-51.00 4.00-11.00 150.00-450.00 13.7 41.1 5.6 209 Glucose (mg/dl) BUN (mg/dl) Creatinine (mg/dl) BUN:Creatinine (1:x) 74.00-106.00 7.00-18.00 0.50-1.30 10.00-20.00 82 16 0.6 26.7 Na (meq/l) K (meq/l) 136.00-145.00 3.50-5.10 142 3.4 INR (PTT:PT) 0.90-1.10 1.1 CPK-MB (ng/ML) 0.50-3.60 Not Drawn Medication Medication Total Dose (Bolus/Oral) Medication Total Dosage/Unit 1% XYLOCAINE 1 mL ASPIRIN 81 mg FENTANYL 25 mcg HEPARIN 7000 units NTG (IC) 350 mcg RADIAL COCKTAIL 1 units VERSED 0.5 mg Medications (Bolus/Oral) Medication Time Given Dosage/Unit Administered By Reason FENTANYL 02/01/2017 8:54:57 AM 25 mcg Robert Rousseau RN 25 mcg FENTANYL given in lab by Robert Rousseau RN in Left Antecubital via Peripheral IV. 1% XYLOCAINE 02/01/2017 8:55:05 AM 1 mL Los Solorzano 1 mL 1% XYLOCAINE given in lab by Los Solorzano in Right Radial via Subcutaneous. VERSED 02/01/2017 8:55:50 AM 0.5 mg Robert Rousseau RN 0.5 mg VERSED given in lab by Robert Rousseau RN in Left Antecubital via Peripheral IV. Ntg 200mcg Verapamil 2.5mg Heparin RADIAL COCKTAIL 02/01/2017 9:00:52 AM 1 units Los Solorzano 3000U 1 units RADIAL COCKTAIL given in lab by Los Solorzano in Right Radial via Radial. Reason: Ntg 2 00mcg Verapamil 2.5mg Heparin 2500U. HEPARIN 02/01/2017 9:04:18 AM 4000 units Robert Rousseau RN 4000 units HEPARIN given in lab by Robert Rousseau RN in Left Antecubital via Peripheral IV. NTG (IC) 02/01/2017 9:14:46 AM 150 mcg Los Solorzano 150 mcg NTG (IC) given in lab by Los Solorzano in Right Radial via Intra-coronary. HEPARIN 02/01/2017 9:19:44 AM 1000 units Robert Rousseau RN 1000 units HEPARIN given in lab by Robert Rousseau RN in Left Antecubital via Peripheral IV. HEPARIN 02/01/2017 9:30:34 AM 1000 units Robert Rousseau RN 1000 units HEPARIN given in lab by Robert Rousseau RN in Left Antecubital via Peripheral IV. HEPARIN 02/01/2017 9:51:03 AM 1000 units Robert Rousseau RN 1000 units HEPARIN given in lab by Robert Rousseau RN in Left Antecubital via Peripheral IV. 02/01/2017 10:05:16 NTG (IC) 200 mcg Los Solorzano AM 200 mcg NTG (IC) given in lab by Los Solorzano in Right Radial via Intra-coronary. 02/01/2017 10:08:15 ASPIRIN 81 mg Robert Rousseau RN AM 81 mg ASPIRIN given in lab by Robert Rousseau RN via Oral. Medication (Drip) Medication Time Given Dosage/Unit Concentration/Unit Diluent (ml) Solution IV Solutions 02/01/2017 8:31:12 AM 0 mL (IV) 500 NaCl .9 IV Solutions given in lab by Robert Rousseau RN in Left Antecubital via Peripheral IV. Pump/Drip Flow = 30 ml/hr using NaCl .9. Initial Case Assessment Cardiovascular HR Rhythm NIBP Chest Pain 75 reg 135/64 0 Edema Present Skin color Skin None Normal Warm Dry Circulatory - Right Pulses Dorsalis Pedis Femoral Radial 2 2 2 Scale (0,1,2,3,4,d) Circulatory - Left Pulses Dorsalis Pedis Femoral Radial 2 Scale (0,1,2,3,4,d) Circulatory - Lower Extremities Color Lower Right Color Lower Left Normal Normal Neurological State Oriented to time-place- Alert Moves all extremities person Respiration - General Respiration Rate SpO2 (%) (B/min) 18 99 Chronological Log Time Study Chronological Log 8:30:51 Patient arrived via Bed. 8:30:52 Patient Name, D.O.B, / Armband Verified By R.N. 8:30:53 Consent signed by the physician and the patient and verified by the Certified Court/Medical Interpreter staff. 8:30:54 Pre-op and post- op instructions given; patient acknowledges understanding of instructions. 8:30:55 Verbal Stimulation=2 Physical Stimulation=2 Airway=2 Respiration=2 TOTAL=8. (0=absent, 1=li mited, 2=present) 8:30:56 Presedation assessment performed by Certified Court/Medical Interpreter RN. 8:31:01 Allens test performed on the right radial and ulnar artery. 8:31:04 Patient has been NPO for More than 6Hrs. 8:31:06 Skin Breakdown rash on lower abdomen 8:31:09 Patient Warmer Placed on the Table. 8:31:11 Clif Prominences Protected 8:31:11 A # 20 IV was noted in the Antecubital (left). Grade = 0 IV Solutions given in lab by Robert Rousseau RN in Left Antecubital via Peripheral IV. Pump/Drip F low = 30 ml/hr using NaCl 8:31:12 .9. 8:31:13 History and physical on the chart or being dictated. Assessment: Initial Case, HR=75 BPM, Rhythm=reg, LWJJ=451/64 mmhg, Chest Pain=0, Edema=None, Col or=Normal, Skin = Warm, Dry Right Pulses: Ernie Ped=2, Femoral=2, Radial=2 Left Pulses: Femoral=2 8:31:15 Lower Right Extremities: Color=Normal Lower Left Extremities: Color=Normal Neurological: State=Alert, Ox3, HESS Respiration: Resp=18 B/min, SpO2=99 % Vitals capture started with the following parameters, Patient=Adult, Interval=5 min, Initial Pre jhpul=382 mmHg, 8:35:39 Deflation Rate=5 mmHg, Cuff placed on Left Arm 8:36:18 HR=64 bpm, WSNF=532/73 mmhg, XaU2=497.0 %, Resp=22 B/min, Pain=0, Mayuri=10, Higuera=2 8:40:58 Reference ECG taken 8:41:15 HR=63 bpm, GHXV=936/66 mmhg, LdM3=326.0 %, Resp=16 B/min, Pain=0, Mayuri=10, Higuera=2 8:44:31 Right Radial and groin(s) prepped with 2% chlorhexidine, and draped after a 3 min. waiting t wilmar. 8:46:10 HR=78 bpm, HZTU=552/89 mmhg, Resp=16 B/min, Pain=0, Mayuri=10, Higuera=2 8:50:01 Pressure channel 1 zeroed. 8:51:15 HR=66 bpm, SUPC=573/77 mmhg, HcC9=589.0 %, Resp=14 B/min, Pain=0, Mayuri=10, Higuera=2 Time Out. Correct patient, correct procedure, correct physician, power injector not loaded with contrast with surgical 8:54:12 team present. Time Out Concurred by MD and individual staff in procedure. 8:54:34 Case Start 8:54:57 25 mcg FENTANYL given in lab by Robert Rousseau RN in Left Antecubital via Peripheral IV. 8:55:05 1 mL 1% XYLOCAINE given in lab by Los Solorzano in Right Radial via Subcutaneous. 8:55:50 0.5 mg VERSED given in lab by Robert Rousseau RN in Left Antecubital via Peripheral IV. 8:56:10 HR=66 bpm, IXBW=725/91 mmhg, SpO2=99.0 %, Resp=10 B/min, Pain=0, Mayuri=10, Higuera=2 9:00:30 Access site was right Radial Artery. A SHEATH, FR6 TRANSRADIAL SLENDER 10CM FR 6 was advanced into the Radial (right) using the [place] 9:00:41 technique. 1 units RADIAL COCKTAIL given in lab by Los Solorzano in Right Radial via Radial. Reason: Ntg 200mcg 9:00:52 Verapamil 2.5mg Heparin 2500U. 9:01:17 HR=75 bpm, BNBR=012/78 mmhg, SpO2=95.0 %, Resp=8 B/min, Pain=0, Mayuri=10, Higuera=2 A EBU 3.5 Z2 GUIDE CATHETER FR 6 was advanced over a wire. OMNIPAQUE, 350 MG, 150ML 150ML was us ed for 9:01:38 injections. Recorded Pressure: Ao, HR=82, Condition=Condition 1 9:04:05 (Aorta) Ao 109/69/87 9:04:18 4000 units HEPARIN given in lab by Robert Rousseau RN in Left Antecubital via Peripheral IV. 9:06:16 HR=80 bpm, PCSF=010/73 mmhg, SpO2=95 %, Resp=9 B/min, Pain=0, Mayuri=10, Higuera=2 9:06:42 A WIRE, BALANCE MIDDLEWEIGHT 190CM 190CM was inserted via Radial (right). 9:11:15 HR=75 bpm, GUBI=569/51 mmhg, SpO2=95.0 %, Resp=19 B/min, Pain=0, Mayuri=10, Higuera=2 9:12:09 Activated Clotting Time Drawn A BALLOON, 2.0 X 6MM EUPHORA 6MM was inserted over WIRE, BALANCE MIDDLEWEIGHT 190CM 190CM via th e 9:13:13 Radial (right). 9:14:46 150 mcg NTG (IC) given in lab by Los Solorzano in Right Radial via Intra-coronary. A BALLOON, 2.0 X 6MM EUPHORA 6MM over a WIRE, BALANCE MIDDLEWEIGHT 190CM 190CM in the OM1 Prox w as 9:15:52 inflated using a 30 TAQUERIA INDEFLATOR at 8 taqueria for 15 sec. 9:16:18 HR=71 bpm, NIBP=99/56 mmhg, SpO2=94.0 %, Resp=14 B/min, Pain=0, Mayuri=10, Higuera=2 9:16:23 Balloon Removed A STENT, 2.5 8MM ARIANE 2.5 8MM was advanced through a EBU 3.5 Z2 GUIDE CATHETER FR 6 over a WIRE, BALANCE 9:17:22 MIDDLEWEIGHT 190CM 190CM. 9:18:15 ACT (Normal Range 90-180) = 262 9:19:01 Stent not deployed. Stent removed and intact. 9:19:44 1000 units HEPARIN given in lab by Robert Rousseau RN in Left Antecubital via Peripheral IV. A BALLOON, 2.0 X 6MM EUPHORA 6MM was inserted over WIRE, BALANCE MIDDLEWEIGHT 190CM 190CM via t he 9:20:30 Radial (right). A BALLOON, 2.0 X 6MM EUPHORA 6MM over a WIRE, BALANCE MIDDLEWEIGHT 190CM 190CM in the OM1 Prox was 9:21:13 inflated using a 30 TAQUERIA INDEFLATOR at 14 taqueria for 25 sec. A BALLOON, 2.0 X 6MM EUPHORA 6MM over a WIRE, BALANCE MIDDLEWEIGHT 190CM 190CM in the OM1 Prox was 9:21:41 inflated using a 30 TAQUERIA INDEFLATOR at 14 taqueria for 15 sec. 9:21:46 HR=67 bpm, XVZE=983/69 mmhg, SpO2=93.0 %, Resp=0 B/min A BALLOON, 2.0 X 6MM EUPHORA 6MM over a WIRE, BALANCE MIDDLEWEIGHT 190CM 190CM in the OM1 Prox was 9:22:04 inflated using a 30 TAQUERIA INDEFLATOR at 14 taqueria for 15 sec. 9:22:22 HR=64 bpm, SpO2=95 %, Resp=0 B/min 9:23:32 Balloon Removed A STENT, 2.5 8MM ARIANE 2.5 8MM was advanced through a EBU 3.5 Z2 GUIDE CATHETER FR 6 over a WIRE , BALANCE 9:24:57 MIDDLEWEIGHT 190CM 190CM. 9:26:14 HR=65 bpm, EGRQ=239/69 mmhg, SpO2=91.0 %, Resp=0 B/min, Pain=0, Mayuri=10, Higuera=2 A STENT, 2.5 8MM ARIANE 2.5 8MM was deployed using a 30 TAQUERIA INDEFLATOR at 12 atmospheres for 30 s econds in 9:28:44 the OM1 Mid. 9:29:48 Delivery device removed 9:30:34 1000 units HEPARIN given in lab by Robert Rousseau RN in Left Antecubital via Peripheral IV. 9:31:11 HR=68 bpm, APYD=808/75 mmhg, SpO2=95.0 %, Resp=18 B/min, Pain=0, Mayuri=10, Higuera=2 A STENT, 2.5 12MM ARIANE 2.5 12MM was advanced through a EBU 3.5 Z2 GUIDE CATHETER FR 6 over a WI RE, 9:35:01 BALANCE MIDDLEWEIGHT 190CM 190CM. 9:36:56 HR=66 bpm, FUPX=156/71 mmhg, SpO2=96.0 %, Resp=25 B/min, Pain=0, Mayuri=10, Higuera=2 9:39:46 Stent not deployed. Stent removed and intact. 9:41:18 HR=74 bpm, JVCO=113/81 mmhg, SpO2=96.0 %, Resp=4 B/min, Pain=0, Mayuri=10, Higuera=2 A BALLOON, 2.5 X 12MM EUPHORA 12MM was inserted over WIRE, BALANCE MIDDLEWEIGHT 190CM 190CM via the 9:42:05 Radial (right). 9:46:19 HR=66 bpm, NKOP=841/75 mmhg, SpO2=94.0 %, Resp=23 B/min, Pain=0, Mayuri=10, Higuera=2 9:46:31 Activated Clotting Time Drawn A BALLOON, 2.5 X 12MM EUPHORA 12MM over a WIRE, BALANCE MIDDLEWEIGHT 190CM 190CM in the OM1 Pro x was 9:51:01 inflated using a 30 TAQUERIA INDEFLATOR at 8 taqueria for 15 sec. 9:51:03 1000 units HEPARIN given in lab by Robert Rousseau RN in Left Antecubital via Peripheral IV. A BALLOON, 2.5 X 12MM EUPHORA 12MM over a WIRE, BALANCE MIDDLEWEIGHT 190CM 190CM in the OM1 Pro x was 9:51:13 inflated using a 30 TAQUERIA INDEFLATOR at 8 taqueria for 15 sec. 9:51:16 ACT (Normal Range 90-180) = 266 9:51:20 HR=66 bpm, MDVS=160/81 mmhg, SpO2=95.0 %, Resp=13 B/min, Pain=0, Mayuri=10, Higuera=2 9:51:34 Balloon Removed A STENT, 2.5 12MM ARIANE 2.5 12MM was advanced through a EBU 3.5 Z2 GUIDE CATHETER FR 6 over a WI RE, 9:55:37 BALANCE MIDDLEWEIGHT 190CM 190CM. 9:56:21 HR=70 bpm, HTCU=284/80 mmhg, SpO2=94.0 %, Resp=14 B/min, Pain=0, Mayuri=10, Higuera=2 A STENT, 2.5 12MM ARIANE 2.5 12MM was deployed using a 30 TAQUERIA INDEFLATOR at 12 atmospheres for 30 seconds in 9:58:58 the OM1 Prox. 9:59:16 Delivery device removed 10:01:22 HR=72 bpm, WUQO=193/84 mmhg, SpO2=93.0 %, Resp=0 B/min, Pain=0, Mayuri=10, Higuera=2 A BALLOON, 2.5 X 12MM EUPHORA 12MM was inserted over WIRE, BALANCE MIDDLEWEIGHT 190CM 190CM via the 10:02:54 Radial (right). A BALLOON, 2.5 X 12MM EUPHORA 12MM over a WIRE, BALANCE MIDDLEWEIGHT 190CM 190CM in the OM1 Pr ox was 10:03:02 inflated using a 30 TAQUERIA INDEFLATOR at 12 taqueria for 15 sec. A BALLOON, 2.5 X 12MM EUPHORA 12MM over a WIRE, BALANCE MIDDLEWEIGHT 190CM 190CM in the OM1 Pr ox was 10:03:35 inflated using a 30 TAQUERIA INDEFLATOR at 12 taqueria for 15 sec. A BALLOON, 2.5 X 12MM EUPHORA 12MM over a WIRE, BALANCE MIDDLEWEIGHT 190CM 190CM in the OM1 Pr ox was 10:04:05 inflated using a 30 TAQUERIA INDEFLATOR at 10 taqueria for 10 sec. 10:04:29 Balloon Removed 10:05:16 200 mcg NTG (IC) given in lab by Los Solorzano in Right Radial via Intra-coronary. 10:06:21 HR=83 bpm, SBNU=120/82 mmhg, SpO2=95.0 %, Resp=24 B/min, Pain=0, Mayuri=10, Higuera=2 10:07:05 Wire removed 10:08:15 81 mg ASPIRIN given in lab by Robert Rousseau RN via Oral. Radial Compression Device Used. 8 mLs of air placed in BAND, RADIAL COMPRESSION TR SHORT 24 24 CM. Affected 10:08:46 hand 98 % O2 saturation. 10:10:52 Case End 10:10:57 Catheter(s) removed without difficulty 10:11:02 No case complications noted. 10:11:11 Bedside Report will be given. 10:11:12 Implantable Device card placed in patient's chart. 10:11:20 HR=75 bpm, HUHB=219/87 mmhg, SpO2=96.0 %, Resp=21 B/min, Pain=0, Mayuri=10, Higuera=2 10:11:22 A Left Heart Cath was performed. 10:17:04 BQRO=266/65 mmhg, SpO2=97.0 %, Pain=0, Mayuri=10, Higuera=2 10:17:33 Vitals capture stopped. End Study - Contrast Media Used In Study Contrast Total Opened (mL) Total Used (mL) Total Wasted (mL) Omnipaque 180 180 0 End Study - Maximum Contrast Load Max Contrast Load (mL) 528.4 End Study - Radiation Exposure Fluoro Time (minutes) 23.8 End Study - Patient Disposition Complications Transferred To Interventional Outcome No Certified Court/Medical Interpreter Holding successful
[2017-02-01] MEDS ORDERED: SODIUM CHLOR 0.9% 1000 ML INJ 1,000 ML IV SCH (11:29)
[2017-02-01] MEDS ORDERED: MISC INFORMATION XX ONE (11:30)
[2017-02-01] MEDS ORDERED: ISOS30TA3 PO (11:35)
[2017-02-01] MEDS ORDERED: ALEN1TAB48 PO (11:44)
[2017-02-01] MEDS ORDERED: VITATAB43 PO (11:44)
[2017-02-01] MEDS ORDERED: BIOT2500 PO (11:44)
[2017-02-01] MEDS ORDERED: MULTTAB67 PO (11:45)
--- NOTE | 2017-02-01 12:57 | RADRPT ---
EXAM DATE/TIME: 02/01/2017 12:12 [place] COMPARISON: No previous studies available for comparison. INDICATIONS : Hematoma, right arm. Right arm pain and swellingn post cardiac catheterization. MEDICAL HISTORY : Hypothyroidism. Hypertension. Gastroesophageal reflux disease. Coronary artery disease. Arthritis. Ch ronic kidney disease, stage II. Diabetes. SURGICAL HISTORY : Appendectomy. Cholecystectomy. Hysterectomy. Cardiac catheterization. Cardiac stents. Tubal ligation. Hernia repair. Gastric bypass. ENCOUNTER: Initial ACUITY: 1 day PAIN SCORE: 6/10 LOCATION: Right arm. AREA EVALUATED: Right arm. FINDINGS: There is a mild soft tissue swelling in the right arm. No significant hematoma formation. Negative fo r pseudoaneurysm. CONCLUSION: 1. Mild soft tissue swelling. Negative for pseudoaneurysm. Toan Alfonso MD on February 01, 2017 at 12:54 Board Certified Radiologist. This report was verified electronically.
[2017-02-01] MEDS ORDERED: LORazepam 0.5 MG TAB PO PRN (13:00)
--- NOTE | 2017-02-01 14:42 | EKG ---
Date Performed: 02/01/2017 Time Performed: 07:20:52 PTAGE: 66 years EKG: Sinus rhythm with frequent PVCs. Septal T wave changes are nonspecific Compared to previous tracing marked sinus arrhythmia is no longer noted, nonspecific T wave changes have improved Abnormal ECG PREVIOUS TRACING : 11/08/2016 16.52 DOCTOR: Sanjay Guerrier Interpretating Date/Time 02/01/2017 14:40:17
[2017-02-01] MEDS ORDERED: PANTOPRAZOLE SODIUM 40 MG VIAL IV PUSH ONE (15:30)
[2017-02-01] MEDS: buPROPion HCL 150 MG SUSTAINED RELEASE TAB PO SCH (20:31)
[2017-02-01] MEDS: TICAGRELOR 90 MG TAB PO SCH (20:31)
[2017-02-01] MEDS ORDERED: ROSUVASTATIN 20 MG PO SCH (21:00)
[2017-02-01] MEDS ORDERED: MONTELUKAST SODIUM 10 MG TAB PO SCH (21:00)
[2017-02-01] MEDS ORDERED: ASPIRIN EC 81 MG TABEC PO SCH (21:00)
[2017-02-01] MEDS ORDERED: CALCIUM CARBONATE 500 MG CHEWABLE TAB PO PRN (21:45)
[2017-02-02] VITALS (13 sets, daily range): BP systolic 118–141; BP diastolic 64–66; PULSE 63–92; RESP 17–18; TEMP 98.1–98.3; O2SAT 96–98
[2017-02-02] MEDS: buPROPion HCL 150 MG SUSTAINED RELEASE TAB PO SCH (08:53)
[2017-02-02] MEDS: TICAGRELOR 90 MG TAB PO SCH (08:53)
--- NOTE | 2017-02-02 08:57 | PD.CARD.PN ---
Subjective Subjective Remarks No events over night No further indigestion Right hand swollen, but no neurovascular compromise Objective Medications Current Medications Medications (Trade) Dose Ordered Sig/Liza Route Start Time Stop Time Status Last Admin (Ecotrin Ec) 81 mg HS PO 02/01/17 21:00 02/01/17 20:32 (Wellbutrin Sr) 150 mg Q12HR PO 02/01/17 21:00 02/02/17 08:53 (Breo Ellipta 100-25 Inh) 1 puff DAILY INH 02/02/17 09:00 02/02/17 08:51 (Imdur) 30 mg DAILY PO 02/02/17 09:00 02/02/17 08:53 (Synthroid) 88 mcg DAILY PO 02/02/17 09:00 02/02/17 08:51 (Ativan) 0.25 mg HS PRN PO 02/01/17 13:00 02/01/17 20:48 (Singulair) 10 mg HS PO 02/01/17 21:00 02/01/17 20:31 (Brilinta) 90 mg BID PO 02/01/17 21:00 02/02/17 08:53 Patient Own Medication PT OWN MED: ROSUVASTATIN (CREST... HS PO 02/01/17 21:00 Future Hold (Prinivil) 2.5 mg DAILY PO 02/02/17 09:00 02/02/17 08:51 (Tums Chew) 1 mg UNSCH PRN PO 02/01/17 21:45 02/01/17 21:56 Vital Signs / I&O Vital Signs Date Time Temp Pulse Resp B/P (MAP) Pulse Ox O2 Delivery O2 Flow Rate FiO2 02/02/17 08:00 74 02/02/17 07:30 67 02/02/17 07:17 98.3 66 18 118/64 (82) 96 02/02/17 06:09 81 02/02/17 05:00 68 02/02/17 04:00 63 02/02/17 03:06 73 02/02/17 03:05 98.1 78 17 141/66 (91) 98 02/02/17 02:00 71 02/02/17 01:01 74 02/02/17 00:00 74 02/01/17 23:00 97.2 76 18 143/73 (96) 98 02/01/17 23:00 71 02/01/17 22:00 82 02/01/17 21:00 84 02/01/17 20:00 88 02/01/17 19:15 98.2 69 18 151/70 (97) 98 02/01/17 19:00 91 02/01/17 18:00 79 02/01/17 17:00 74 02/01/17 16:13 99 Room Air 02/01/17 16:00 72 02/01/17 15:00 97.6 89 18 144/70 (94) 94 02/01/17 15:00 81 02/01/17 14:00 90 02/01/17 13:30 98.1 78 18 144/66 (92) 98 I/O 02/01/17 02/01/17 02/01/17 02/02/17 02/02/17 02/02/17 07:00 15:00 23:00 07:00 15:00 23:00 Intake Total 300 ml 480 ml 720 ml Output Total 1050 ml Balance 300 ml 480 ml -330 ml Intake Oral 480 ml 720 ml IV Total 300 ml Output Urine Total 1050 ml Physical Exam GENERAL: NAD, AAOx3 SKIN: Warm and dry. HEAD: Atraumatic. Normocephalic. EYES: Pupils equal and round. No scleral icterus. No injection or drainage. ENT: No nasal bleeding or discharge. Mucous membranes pink and moist. NECK: Trachea midline. No JVD. CARDIOVASCULAR: Regular rate and rhythm. RESPIRATORY: No accessory muscle use. Clear to auscultation. Breath sounds equal bilaterally. GASTROINTESTINAL: Abdomen soft, non-tender, nondistended. Hepatic and splenic margins not palpable. MUSCULOSKELETAL: Extremities without clubbing, cyanosis. Right hand swollen NEUROLOGICAL: Awake and alert. No obvious cranial nerve deficits. Motor grossly within normal limits. Five out of 5 muscle strength in the arms and legs. Normal speech. PSYCHIATRIC: Appropriate mood and affect; insight and judgment normal. Assessment and Plan Problem List: (1) Unstable angina ICD Codes: I20.0 - Unstable angina (2) CAD (coronary artery disease) ICD Codes: I25.10 - Atherosclerotic heart disease of [place] coronary artery without angina pectoris (3) HTN (hypertension) ICD Codes: I10 - Essential (primary) hypertension (4) Diabetes ICD Codes: E11.9 - Type 2 diabetes mellitus without complications Assessment and Plan 1) [place] s/p DESx2 to OM1 Con't ASA/Brilinta/Statin Added JIMMY-I No BB since heart rates previously in the 40s on metoprolol 2) Right arm hematoma JIMMY bandage off Will watch for 2 hours, if stable then discharge Los Solorzano DO Feb 02, 2017 08:57
[2017-02-02] MEDS ORDERED: LISI-519 PO (08:59)
[2017-02-02] MEDS ORDERED: ISOSORBIDE MONONITRATE 30 MG TAB PO SCH (09:00)
[2017-02-02] MEDS ORDERED: LEVOTHYROXINE SODIUM 88 MCG TAB PO SCH (09:00)
[2017-02-02] MEDS ORDERED: LISINOPRIL 5 MG TAB PO SCH (09:00)
[2017-02-02] MEDS ORDERED: FLUTICASONE 100 MCG/VILANTEROL 25 MCG INHALER INH SCH (09:00)
--- NOTE | 2017-02-02 12:06 | MA ---
cc: LOS BARRIGA DO DATE: 02/01/2017 PROCEDURE 1. Coronary angiogram. 2. Nirmala drug-eluting stent (2.5 x 12) to proximal first obtuse marginal. 3. Nirmala drug-eluting stent (2.25 x 8) to mid first obtuse marginal. 4. Moderate sedation, 75 minutes. PREPROCEDURE DIAGNOSIS Unstable angina (Niuean anginal score 3), known obtuse marginal disease. POSTPROCEDURE DIAGNOSIS PCI of proximal first obtuse marginal, status post Kent drug-eluting stent (2.25 x 8), status post nirmala drug-eluting stent (2.5 x 12) to the proximal obtuse marginal. MEDICATIONS Versed 0.5 mg, fentanyl 25 mcg, nitro 200 mcg, verapamil 2.5 mg, heparin 9500 units, aspirin 81 mg. CONTRAST USED 180 cc. FLUORO TIME 23.8 minutes. SEDATION Moderate sedation, 75 minutes. ESTIMATED BLOOD LOSS 10 cc. PROCEDURAL SUMMARY Hilda Morales is a pleasant 66-year-old female whom I see in the office and previously underwent PCI of her RCA. She continued to have unstable angina with chest pain and shortness of breath with activity and so she was recommended a repeat cardiac catheterization with planned PCI of her obtuse marginal. The risks, benefits and alternatives were explained to her and she consented as such. She was brought to the lab and prepped in the usual sterile fashion. The right radial artery was accessed using a modified Seldinger technique and placement of a 5/6 Maori Slender sheath. This was easily aspirated and flushed. An EBU 3.5 guide catheter was advanced, engaged into the left main. Heparin was given as an anticoagulant. A BMW wire was advanced into the distal obtuse marginal. A compliant balloon (2 x 6) was then used to pre-dilate the distal lesion. This balloon was also used to dilate the proximal lesion. A Nirmala drug-eluting stent (2.25 x 8) was then placed over the mid lesion and inflated. At this time a compliant balloon (2.5 x 12) was used to pre-dilate the proximal lesion. An Kent drug-eluting stent (2.5 x 12) was then placed up to the ostium of the first obtuse marginal and inflated. This was post dilated with a noncompliant balloon (2.5 x 8). The wire was removed and final angiogram shows two well-apposed stents with no perforations or dissections. The patient was given aspirin 81 mg that she takes normally at night. A radial band was placed over the arteriotomy site for hemostasis. 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 FINDINGS The left main was normal with adequate reflux. It bifurcates into LAD and circumflex. The LAD has no significant change from previous with 10% in the proximal and 40% in the mid. The left circumflex is a normal size vessel with 10% disease. It bifurcates into the first and second obtuse marginal. The first obtuse marginal has a 90% proximal lesion, status post Nirmala drug-eluting stent (2.5 x 12), and a [id number] lesion status post Kent drug-eluting stent (2.25 x 8). IMPRESSION 1. Unstable angina (Niuean anginal score 3). 2. Known coronary artery disease with multiple interventions on her RCA and obtuse marginal disease, status post drug-eluting stent x2 as above. RECOMMENDATIONS 1. Ms. Morales underwent PCI of her obtuse marginal. She will continue on aspirin and Brilinta therapy. She has had trouble with statins in the past but will continue on Crestor. Previously GUILLAUME inhibitors were held due to hypotension but we will try to place her on low-dose GUILLAUME inhibitor therapy. Lastly, she has been on beta gilda therapy in the past and her heart rates dip into the 40s overnight and so this will be held. 2. She will be watched overnight and if stable discharged home in the morning. 3. She did have a small hematoma noted in the forearm and so her arm will be wrapped with an Guillaume bandage. If at any time there is concern for neurovascular compromise distally consideration will have to be made for compartment syndrome. 4. She does have extensive disease throughout her RCA which was treated previously with laser atherectomy as well as cutting balloon therapy. Will attempt to treat this medically as best as possible and if she continues to have further symptoms, will consider repeat intervention. 5. Further recommendations will be made based on the hospital course. Thank you for allowing me to see me Hilda Morales. If there are any questions, please do not hesitate to call. Los Barriga DO VGP/BT /10:36 PM /11:47 AM
--- NOTE | 2017-02-02 23:16 | EKG ---
Date Performed: 02/01/2017 Time Performed: 15:17:44 PTAGE: 66 years EKG: Sinus rhythm Possible lateral infarct - age undetermined Abnormal ECG PREVIOUS TRACING : 02/01/2017 07.20 Compared to the previous tracing, PVCs no longer noted DOCTOR: Los Solorzano Interpretating Date/Time 02/02/2017 23:15:00
== END 2017-02-02 10:39 | disposition home or self-care (01) ==
LOC: HDOC 06:30 → HDIC 06:31 → HCPC 13:30 → HDOC 02-02 10:39
PROVIDERS: ATTEND Nuclear Medicine Nuclear Cardiology
DX: I25.110 Atherosclerotic heart disease of native coronary artery with unstable angina pectoris (principal); I70.0 Atherosclerosis of aorta; I12.9 Hypertensive chronic kidney disease with stage 1 through stage 4 chronic kidney disease, or unspecified chronic kidney disease; N18.2 Chronic kidney disease, stage 2 (mild); E78.5 Hyperlipidemia, unspecified; E11.9 Type 2 diabetes mellitus without complications; Z79.82 Long term (current) use of aspirin
CPT/HCPCS: 80048; 85002; 85025; 85610; 85730; 92928; 93005; 93454; 93931; 99152; C1725; C1769; C1874; C1887; C1893; C9113; J1644; J2250; J3010; Q9967